=== PATIENT | female | born 1975 | race Caucasian/White ===

== ENCOUNTER 2016-10-15 14:39 | Inpatient (IN) | payer OTHER ==
[~2016-10-15] VITALS: Ht 167.6 cm; Wt 157.0 kg
[~2016-10-15 14:39] MED LIST: ACET-654 PO; ACET50TA PO; BACT800T5 PO; IBUP80TA PO; PRENTAB55 PO; RANI1TAB6 PO
[2016-10-15] MEDS ORDERED: PRENTAB9 PO (14:47)
[2016-10-15 14:58] VITALS: BP 133/88
[2016-10-15 16:38] VITALS: BP 132/67
[2016-10-15] MEDS ORDERED: LACTATED RINGER'S 1000 ML IV STA (17:09)
[2016-10-15] MEDS ORDERED: BICITRA 30ML SOLN UDC PO ONE (17:15)
[2016-10-15 17:44] LABS: MEAN CORPUSCULAR HEMOGLOBIN 26.4 pg (27.0-33.0); MEAN CORPUSCULAR HGB CONC 32.4 g/dl (32.0-36.5); MEAN CORPUSCULAR VOLUME 81.5 fl (80.0-96.0); WHITE BLOOD COUNT 10.9 K/mm3 (4.0-10.0)
--- NOTE | 2016-10-15 17:46 | HPEPDOC ---
Obstetrical History & Physical General Date of Admission Oct 15, 2016 at 14:39 History of Present Illness Nayely is a 41yo with SIUP at 40w1d by 2nd trimester ultrasound presenting today for scheduled iol for morbid obesity (BMI 55). On presentation , a TAUS was performed by this provider and head noted to be in the maternal LUQ = breech presentation. Patient last ate at 1330. PMhx significant for morbid obesity (BMI 55), GERD, depression-seeing . course complicated by AMA, previous with GBS sepsis, e-coli UTI treated in May with ESTEVAN this week showing +Klebsiella sensitive to anceph. Also, non-compliance. She came to her OB visits but never did growth scans as instructed, and did not perform urine ESTEVAN or GTT until last week. Information Provided By: Patient Care Care: Other (non-compliant) Dating Final EDC: Oct 14, 2016 Final EDC by: 2nd trimester (US) Antepartum Course Diagnos(e)s AMA, previous with GBS sepsis, e-coli UTI treated in May with ESTEVAN this week showing +Klebsiella sensitive to anceph. Also, non-compliance. She came to her OB visits but never did growth scans as instructed, and did not perform urine ESTEVAN or GTT until last week. Height (inches): 66 Pre- weight (lbs.): 347 Admission Weight (lbs.): 362 Past Medical History Past Obstetrical History #1: Past Obstetrical History: Multigravida Date of Delivery: Sep 28, 2001 Gestation: 39 Type of Delivery: Spontaneous Vaginal Del. Sex of : Male Complications: Yes ( GBS sepsis) Past Obstetrical History #2: Past Obstetrical History: Multigravida Date of Delivery: Sep 28, 2003 Gestation: 40 Type of Delivery: Spontaneous Vaginal Del. Sex of : Male Complications: No Past Obstetrical History #3: Past Obstetrical History: Multigravida Date of Delivery: Sep 28, 2007 Gestation: 40 Type of Delivery: Spontaneous Vaginal Del. Sex of Infant: Male Complications: No Past Obstetrical History #4: Past Obstetrical History: Multigravida Date of Delivery: Sep 28, 2014 Gestation: 41 Type of Delivery: Spontaneous Vaginal Del. Sex of Infant: Male Complications: No SHIPPING INSPECTOR History: No pertinent history Past Medical History Surgical History: Denies Family History Significant Family History: Diabetes Social History Marital Status: Family situation: Spouse/partner home Psychosocial History: Depression * Smoker: non-smoker Alcohol: denies Drugs: denies Allergies Coded Allergies: No Known Drug Allergy (Verified Allergy, Unknown, 12/30/12) Medications Scheduled Multivitamins/ ( 27-0.8 mg) 1 Tab Tab 1 TAB PO DAILY Physical Examination Physical Examination GENERAL: Alert and oriented times three. BREAST: . ABDOMEN: Morbidly obese, gravid and non-tender to touch. FETUS: Is breech by TAUS with head in maternal LUQ HEART RATE: Regular rate and rhythm. LUNGS: Clear to auscultation (CTA). EXTREMITIES: trace edema of BLE Laboratory Data Urine Culture: Other (Klebsiella) Pertinent Laboratoy Data Blood Type: O+ RBC Antibody Screen: Negative HIV: Negative Hepatitis B: Negative Hepatitis C: Unknown Rapid Plasma Reagin: Nonreactive Rubella: Immune Varicella: Immune Chlamydia/Gonorrhea: Negative Group B Streptococcus: Positive Anatomy Ultrasound Ultrasound Date: Jun 12, 2016 Placenta Location: Anterior Normal Anatomy: Yes Placenta Previa: No Steroid Therapy Steroid Therapy: No Vaginal Examination Dilation: 1cm Effacement: 0-30% Station: -4 Cervical Consistency: Medium Cervical Position: Posterior Presentation: Breech presentation Position: Breech (sacrum) Assessment Heart Rate (FHR): 140 Variability: Moderate Accelerations: Positive Decelerations: None Tocometer Contractions: No Assessment/Plan Assessment Nayely is a 41yo with SIUP at 40w1d by 2nd trimester ultrasound presenting today for scheduled iol for morbid obesity (BMI 55). On presentation , a TAUS was performed by this provider and head noted to be in the maternal LUQ = breech presentation. Patient last ate at 1330. PMhx significant for morbid obesity (BMI 55), GERD, depression-seeing . course complicated by AMA, previous with GBS sepsis, e-coli UTI treated in May with ESTEVAN this week showing +Klebsiella sensitive to anceph. Also, non-compliance. She came to her OB visits but never did growth scans as instructed, and did not perform urine ESTEVAN or GTT until last week. Plan Admit and orient Cordwood Cutter and consent for section with BTL (patient has endorsed desire for BTL throughout and confirms today) Diet: NPO Group B Streptococcus (GBS) positive based on previous infant affected by GBS sepsis Labs: CBC, type and screen, RPR Fingerstick glucose x1 now (patient endorses did GTT last week, but results not in chart) Lactated Ringers (LR): Bolus 1000 mL, then at 125 mL/hr.\ Anceph 2g pre-op will also cover klebsiella bacteruria LEYDI BUENO MD Oct 15, 2016 17:46
[2016-10-15 18:16] VITALS: BP 123/70
[2016-10-15] MEDS: LR 1,000 ML IV SCH (18:54)
[2016-10-15] MEDS ORDERED: ONDANSETRON 4MG/2ML VIAL (J2405) As Ordered ONE (19:47)
[2016-10-15] MEDS ORDERED: KETOROLAC 60 MG/2 ML VIAL (J1885) As Ordered ONE (19:47)
[2016-10-15] MEDS ORDERED: OXYTOCIN INJ 10 UNITS/ML VIAL (J2590) As Ordered ONE ×2 (19:47→22:36)
[2016-10-15] MEDS ORDERED: MORPHINE PRES-FREE INJ 10 MG/10 ML VIAL (J2274) As Ordered ONE (19:47)
[2016-10-15] MEDS ORDERED: NALBUPHINE HCL 10 MG/ML AMP (J2300) IV PRN (21:16)
[2016-10-15] MEDS ORDERED: METOCLOPRAMIDE INJ 10MG/2ML VIAL (J2765) IV PRN (21:16)
[2016-10-15] MEDS ORDERED: NALOXONE INJ 0.4 MG/1 ML VIAL (J2310) IV PRN ×2 (21:16)
[2016-10-15] MEDS ORDERED: ONDANSETRON 4MG/2ML VIAL (J2405) IV PRN (21:16)
[2016-10-15] MEDS ORDERED: PHENYLephrine HCL 500 MCG/5 ML (100MCG/ML) SYRINGE (J2370) As Ordered ONE ×3 (21:37→22:10)
[2016-10-15] MEDS ORDERED: ePHEDrine SULFATE 25 MG/5 ML(5MG/ML) SYRINGE As Ordered ONE (21:37)
[2016-10-15 22:27] LABS: CORD GAS ABE V -8.9; CORD GAS O2 SAT V 44.2 %; CORD GAS PCO2 V 47.7 mmHg; CORD GAS PH V 7.217 UNITS; CORD GAS PO2 V 23.1 mmHg; CORD GAS SBC V 16.3 MEQ/L; CORD GAS TCO2 V 20.4 MEQ/L
[2016-10-15 22:28] LABS: CORD GAS ABE A -7.3; CORD GAS O2 SAT A 20.5 %; CORD GAS PCO2 A 66.7 mmHg; CORD GAS PH A 7.155 UNITS; CORD GAS PO2 A 15.3 mmHg; CORD GAS SBC A 16.9 MEQ/L
[2016-10-15] MEDS ORDERED: diphenhydrAMINE INJ 50MG/ML VIAL (J1200) As Ordered ONE (23:08)
[2016-10-16] VITALS (7 sets, daily range): BP systolic 110–138; BP diastolic 57–73
[2016-10-16] MEDS ORDERED: LR 1,000 ML IV SCH (00:15)
[2016-10-16] MEDS ORDERED: fentaNYL 100 MCG/2 ML INJECTION (J3010) IV PRN (00:15)
[2016-10-16] MEDS ORDERED: MEPERIDINE INJ 25 MG/ML VIAL (J2175) IV PRN (00:15)
[2016-10-16] MEDS ORDERED: ONDANSETRON 4MG/2ML VIAL (J2405) IV PRN (00:15)
[2016-10-16] MEDS ORDERED: PERCOCET 5MG/325MG TAB PO PRN ×3 (00:15→02:00)
[2016-10-16] MEDS ORDERED: KETOROLAC 30 MG/ML VIAL (J1885) IV PRN (00:15)
[2016-10-16] MEDS ORDERED: METOCLOPRAMIDE INJ 10MG/2ML VIAL (J2765) IV PRN (00:15)
[2016-10-16] MEDS ORDERED: diphenhydrAMINE INJ 50MG/ML VIAL (J1200) IV PRN (00:15)
[2016-10-16] MEDS: LR 1,000 ML IV SCH ×4 (01:09→23:26)
[2016-10-16] MEDS ORDERED: MEASLES,MUMPS,RUBELLA VACCINE INJ (MMR-II) (90707) SC SCH (02:00)
[2016-10-16] MEDS ORDERED: RHOGAM 300 MCG (1500 IU) INJ (J2790) IM SCH (02:00)
[2016-10-16] MEDS ORDERED: MOM 30ML SUSPENSION UDC PO PRN (02:00)
[2016-10-16] MEDS ORDERED: KETOROLAC 30 MG/ML VIAL (J1885) IV SCH (04:00)
[2016-10-16] MEDS: KETOROLAC 30 MG/ML VIAL (J1885) IV SCH ×4 (04:59→23:10)
[2016-10-16] MEDS: PRENATAL VITAMIN TAB PO SCH (08:20)
[2016-10-16] MEDS: ENOXAPARIN 40 MG/0.4 ML SYRINGE (J1650) SC SCH (08:50)
[2016-10-16] MEDS ORDERED: ACET50TA PO (11:21)
[2016-10-16] MEDS ORDERED: COLA100C PO (11:21)
[2016-10-16] MEDS ORDERED: IBUP-1114 PO (11:21)
[2016-10-16] MEDS ORDERED: DIBU1OIN TOP (11:21)
--- NOTE | 2016-10-16 15:31 | IPNPDOC ---
Text Note Date of Service The patient was seen on 10/16/16 at 15:25. NOTE Post-Op Day 1 Nayely is a 41yo [id number] doing well on post-op day 1 s/p uncomplicated PLTCS with BTL indicated for breech presentation at 40w1d when presenting for IOL with satisfied parity. PMhx significant for morbid obesity with BMI 55. She is . Lochia normal, spontaneously voiding and ambulating without difficulty. Tolerating regular diet. Denies f/c/n/v/SOB/CP/ERNST/abdominal pain. Vitals wnl, afebrile Exam: General: WDWN, NAD, resting comfortably Cardiac: S1S2 present, no murmur Lungs: CTAB without wheeze/crackles Abdomen: soft, NTTP, fundus firm u-2cm (distorted by pannus), wound vac in place over pfannensteil incision and functioning well with no surrounding erythema, no drainage Extremities: no tenderness of calves bilaterally, SCDs on and functioning Assessment: Nayely is a 41yo [id number] doing well on post-op day 1 s/p uncomplicated PLTCS with BTL indicated for breech presentation at 40w1d when presenting for IOL with satisfied parity. PMhx significant for morbid obesity with BMI 55. Vitals wnl, benign exam. No e/o infection, hemodynamically stable. Plan: -routine post-op/post- care -Continue anceph 2g IV q8hr for 48hr post-op (plan for week-long course of augmentin after discharge to treat klebsiella bacteruria) -Lovenox 40mg SQ QD for prophylaxis while admitted, will discontinue on discharge -Regular diet -Hep-lock IV -Encourage ambulation and and use of IS -CBC in am -Wound vac in place, ok to shower with it and will go home with her. She knows to remove the entire wound vac after the battery dies in 5-7 days MD Sabine Nazario,Pedro, I+O ARIC, Pedro, I+O Laboratory Tests 10/15/16 17:20 Red Blood Count 4.18, Mean Corpuscular Volume 81.5, Mean Corpuscular Hemoglobin 26.4 L, Mean Corpuscular Hemoglobin Concent 32.4, Red Cell Distribution Width 16.0 H Vital Signs Date Time Temp Pulse Resp B/P Pulse Ox O2 Delivery O2 Flow Rate FiO2 10/16/16 10:00 97.2 93 20 131/66 99 10/16/16 04:15 Room Air I&O- Last 24 Hours up to 6 AM 10/16/16 05:59 Intake Total 1000 ml Output Total 725 ml Balance 275 ml LEYDI BUENO MD Oct 16, 2016 15:31
[2016-10-17 05:46] VITALS: BP 142/74
[2016-10-17] MEDS ORDERED: IBUPROFEN 800 MG TAB PO SCH ×2 (06:00→07:00)
[2016-10-17 07:22] LABS: MEAN CORPUSCULAR HEMOGLOBIN 27.6 pg (27.0-33.0); MEAN CORPUSCULAR HGB CONC 33.7 g/dl (32.0-36.5); MEAN CORPUSCULAR VOLUME 81.8 fl (80.0-96.0); RED CELL DISTRIBUTION WIDTH 15.4 % (11.5-14.5); WHITE BLOOD COUNT 10.2 K/mm3 (4.0-10.0)
[2016-10-17] MEDS: PRENATAL VITAMIN TAB PO SCH (07:53)
--- NOTE | 2016-10-17 08:34 | RO ---
DATE OF PROCEDURE: 10/15/2016 PREPROCEDURE DIAGNOSES: 1. Term intrauterine at 40 weeks 1 day with breech presentation. 2. Morbid obesity, body mass index (BMI) of 55. 3. Advanced maternal age. 4. Satisfied parity. POSTPROCEDURE DIAGNOSES: 1. Term intrauterine at 40 weeks 1 day with breech presentation. 2. Morbid obesity, body mass index (BMI) of 55. 3. Advanced maternal age. 4. Satisfied parity. PROCEDURE: Primary low transverse section with bilateral tubal ligation. SURGEON: Dr. Rachel Ferrera. TECHNICIAN: Dr. Ismael Correa. ANESTHESIA: Spinal ESTIMATED BLOOD LOSS: 500 mL. INFECTION CLASSIFICATION: 2. IV FLUIDS: 2550 mL of lactated ringers. URINE OUTPUT: 50 mL of yellow clear urine. MATERIAL FORWARDED TO LABORATORY FOR EXAMINATION: Cord gases, pH venous 7.217, base excess -8.9, pH arterial 7.155, base excess -7.3. INDICATION FOR OPERATION: Nayely is a 41-year-old, G5 now P5-0-0-5 who presented for induction of labor at 40 weeks 1 day with the indication of advanced maternal age and morbid obesity with a body mass index (BMI) of 55. On presentation, transabdominal ultrasound was performed per protocol and the fetus was seen to be in breech presentation with the head in the maternal left upper quadrant of the abdomen. At that time, she was consented for a primary section as mode of delivery instead of having an induction of labor given presentation. She endorsed desire for tubal ligation which was previously documented in her chart. DESCRIPTION OF FINDINGS: Clear amniotic fluid noted on entry to the uterus. Female infant in footling breech presentation. 8 and 9. Weight 3388 grams or 7 pounds 7 ounces. Normal appearing uterus and fallopian tubes. DESCRIPTION OF OPERATION: After obtaining informed consent, Nayely was taken to the operating room. Izaguirre catheter and bilateral sequential compression devices were placed. She received 2 grams of IV Ancef prophylactically. She was prepped and draped in normal sterile fashion in dorsal supine position with a left lateral tilt after taping up her pannus. Time out was performed to confirm patient name, date of , procedure and indication. Surgical team, nursing staff and anesthesia were all in agreement. Spinal anesthesia was found to be adequate using an Allis clamp. Pfannenstiel skin incision was made with a scalpel and carried through to the underlying layer of the fascia with the Bovie. The fascia was incised in the midline and the incision was extended laterally with Rios scissors. The superior and inferior aspect of the fascial incision were grasped with Tobias clamps, elevated and the underlying rectus muscles were dissected off bluntly and sharply. The peritoneum was entered digitally and the rectus muscles were in the midline. The peritoneal incision was extended superiorly and inferiorly with good visualization of the bladder. Bladder blade was inserted and the vesicouterine peritoneum was identified, grasped with pickups and entered sharply with Metzenbaum scissors. The incision was extended laterally and a bladder flap created digitally. Bladder blade was reinserted and the lower uterine segment was scored in a transverse fashion with a scalpel. The uterus was entered bluntly and the incision was extended with traction with aid of bandage scissors on the right lateral aspect of the hysterotomy. The bladder blade was removed and clear fluid was noted on entry to the uterus. Placing one hand into the uterus, the presenting part was the right foot of the which was elevated to the level of the incision and the leg was delivered. At that point, the infant was turned and the left leg was delivered using Pinard's maneuver. The left followed by right arm were delivered using Lovset maneuver and the head was delivered atraumatically in OA position using fundal pressure. Nose and mouth were suctioned with bulb suction. Cord was clamped times two and cut. The infant was handed off to the awaiting nursing team and cord gases were obtained with values as noted above. Placenta was removed with traction on the umbilical cord and massage of the uterus. The uterus was left in situ and cleared of all clot and debris. The uterine incision was repaired with #0 Vicryl suture in a running locking fashion and a second layer of the same suture was used to close the hysterotomy incision in an imbricating fashion. Two extra [id number]'s were needed with the #0Vicryl to gain complete hemostasis. Uterine incision was inspected and hemostasis noted. At that point, we turned our attention to the fallopian tubes which were brought up to near the level of the skin incision using clamps and Filshie clips were placed bilaterally noting complete obliteration of the tube on both sides approximately 4 cm from the cornua on each side. We reinspected the uterine incision and noted it again to be hemostatic. The fascia was then reapproximated with #0 Vicryl suture in a running fashion. Dieudonne's fascia was reapproximated using #3-0 Vicryl suture in a running fashion in two layers after copious irrigation of normal saline. Skin edges were reapproximated using three inverted interrupted stitches using #3-0 Vicryl suture followed by a running subcuticular stitch using #4-0 Monocryl suture. The incision was cleaned using a wet lap, dried with a dry lap. At that point, we took down the drapes while protecting the incision and then removed the sterile towel from the incision and placed a Prevena wound vacuum under the information assurance analyst specifications and noted it to have a good seal and to be functioning well. This will hopefully keep the patient from getting a wound infection along with continuing her Ancef every 8 hours over the course of her admission. She had noted Klebsiella bacteria in her urine only the day of her admission which she performed as a test of cure for a previous E. Coli urinary tract infection (UTI) that was treated in earlier . Given the presence of the Klebsiella in her urine, we will continue her Ancef during admission and then she will have a 1 week course of Augmentin after discharge. She will also receive Lovenox 40 mg subcutaneously daily during her hospital course starting approximately 12 hours after surgery if her bleeding is minimal. The vagina was cleared of all blood clot without active bleeding noted. All counts were correct times two. The procedure was without complication and she tolerated the procedure well. She was taken to the recovery room in labor and delivery in stable condition. JERRY
[2016-10-17] MEDS: ENOXAPARIN 40 MG/0.4 ML SYRINGE (J1650) SC SCH (08:37)
--- NOTE | 2016-10-17 12:58 | IPNPDOC ---
Text Note Date of Service The patient was seen on 10/17/16 at 12:53. NOTE Post-Op Day 2 Nayely is a 41yo [id number] doing well on post-op day 2 s/p uncomplicated PLTCS with BTL indicated for breech presentation at 40w1d when presenting for IOL with satisfied parity. PMhx significant for morbid obesity with BMI 55. She is . Lochia normal, spontaneously voiding and ambulating without difficulty. Tolerating regular diet. Denies f/c/n/v/SOB/CP/ERNST/abdominal pain. Vitals wnl, afebrile Exam: General: WDWN, NAD, sitting in bed comfortably Cardiac: S1S2 present, no murmur Lungs: CTAB without wheeze/crackles Abdomen: soft, NTTP, fundus firm u-2cm (distorted by pannus), wound vac in place over pfannensteil incision and functioning well with no surrounding erythema, no drainage. There is moisture present under the pannus, likely from patient's shower this morning Extremities: no tenderness of calves bilaterally, SCDs on and functioning Labs: 10/15: WBC 10.9, H/H 11/34 10/17: WBC 10.2, H/H 8.4/ Assessment: Nayely is a 41yo [id number] doing well on post-op day 2 s/p uncomplicated PLTCS with BTL indicated for breech presentation at 40w1d when presenting for IOL with satisfied parity. PMhx significant for morbid obesity with BMI 55. Vitals wnl, benign exam. No e/o infection, hemodynamically stable. Has received anceph 2g q8hr IV since operation for klebsiella + urine and lovenox 40mg SQ QD for DVT prophylaxis. Plan: -discharge to home today -Wound vac in place, ok to shower with it and will go home with her. She knows to remove the entire wound vac after the battery dies in 5-7 days -Given home meds from clinic flex stock: motrin, percocet, lanolin, miralax and instructed on their use -She knows to go to [facility] on the way home to pick up operator augmentin 500mg for 10 day course BID -Again instructed to keep under the pannus dry. She has the extra seal stickers to place for the wound vac if the seal leaks after she goes home Dr. Leydi Ferrera MD Swengel Pedro [place], I+O VSPedro, I+O Laboratory Tests 10/17/16 07:09 Red Blood Count 3.05 L, Mean Corpuscular Volume 81.8, Mean Corpuscular Hemoglobin 27.6, Mean Corpuscular Hemoglobin Concent 33.7, Red Cell Distribution Width 15.4 H Vital Signs Date Time Temp Pulse Resp B/P Pulse Ox O2 Delivery O2 Flow Rate FiO2 10/17/16 05:46 97.6 87 18 142/74 10/16/16 22:00 100 Room Air I&O- Last 24 Hours up to 6 AM 10/17/16 06:00 Intake Total 1920 ml Balance 1920 ml LEYDI FERRERA MD Oct 17, 2016 12:58
--- NOTE | 2016-10-17 13:04 | DS.PDOC ---
Discharge Summary General Date of Admission Oct 15, 2016 at 14:39 Date of Discharge Oct 17, 2016 Attending Physician: LEYDI BUENO MD Discharge Summary PROCEDURES PERFORMED DURING STAY: Primary low transverse section with bilateral tubal ligation COMPLICATIONS/CHIEF COMPLAINT: breech presentation at term when presenting for IOL for advanced maternal age/obesity ADMISSION DIAGNOSES: 1. Breech presentation when presenting for induction of labor for advanced maternal age/morbid obesity DISCHARGE DIAGNOSES: 1. Breech presentation when presenting for induction of labor for advanced maternal age/morbid obesity, delivered HISTORY OF PRESENT ILLNESS/HOSPITAL COURSE: Nayely is a 41yo [id number] doing well on post-operative day 2 status post uncomplicated primary low transverse section with bilateral tubal ligation indicated for breech presentation at 40w1d when presenting for induction of labor with satisfied parity. Past medical history significant for morbid obesity with BMI 55. Received anceph 2g q8hr IV after operation for klebsiella + urine and lovenox 40mg SQ QD for DVT prophylaxis. Plan to continue on 10 day oral course of augmentin to treat bacteruria. Post-operative course has been benign. DISCHARGE MEDICATIONS: motrin, percocet, lanolin, miralax- instructed on their use ALLERGIES: Please see below. PHYSICAL EXAMINATION ON DISCHARGE: Vitals- see below General: WDWN, NAD, sitting in bed comfortably Cardiac: S1S2 present, no murmur Lungs: CTAB without wheeze/crackles Abdomen: soft, NTTP, fundus firm u-2cm (distorted by pannus), wound vac in place over pfannensteil incision and functioning well with no surrounding erythema, no drainage. There is moisture present under the pannus, likely from patient's shower this morning Extremities: no tenderness of calves bilaterally, SCDs on and functioning LABORATORY DATA: Please see below. 10/15: WBC 10.9, H/H 1134 10/17: WBC 10.2, H/H 8.01/20 IMAGING: none VTE Prophylaxis ordered?: received Lovenox 40mg SQ QD post-operatively as well as SCDs DISCHARGE CONDITION: stable DISPOSITION: home ACTIVITY: ad giorgi DIET: regular ITEMS TO FOLLOWUP ON OUTPATIENT: 1. Incision check in 1 week DISCHARGE PLAN AND INSTRUCTIONS: -discharge to home today -Wound vac in place, ok to shower with it and will go home with her. She knows to remove the entire wound vac after the battery dies in 5-7 days -Given home meds from clinic flex stock: motrin, percocet, lanolin, miralax and instructed on their use -She knows to go to [facility] on the way home to potato picker augmentin 500mg for 10 day course BID -Again instructed to keep under the pannus dry. She has the extra seal stickers to place for the wound vac if the seal leaks after she goes home TIME SPENT ON DISCHARGE: Greater than 30 minutes. Vital Signs/I&Os Vital Signs Date Time Temp Pulse Resp B/P Pulse Ox O2 Delivery O2 Flow Rate FiO2 10/17/16 05:46 97.6 87 18 142/74 10/16/16 22:00 100 Room Air I&O- Last 24 Hours up to 6 AM 10/17/16 06:00 Intake Total 1920 ml Balance 1920 ml Laboratory Data CBC/BMP Laboratory Tests 10/17/16 07:09 Red Blood Count 3.05 L, Mean Corpuscular Volume 81.8, Mean Corpuscular Hemoglobin 27.6, Mean Corpuscular Hemoglobin Concent 33.7, Red Cell Distribution Width 15.4 H Medications Scheduled Multivitamins/ ( 27-0.8 mg) 1 Tab Tab 1 TAB PO DAILY Scheduled PRN Acetaminophen (Mapap) 500 Mg Tab 1,000 MG PO Q6HP PRN PRN ABDOMINAL PAIN Dibucaine (Dibucaine) 1 % Oin 0 TOP Q4HP PRN PRN perineum Ibuprofen (Ibuprofen) 400 Mg Tab 800 MG PO Q8HP PRN PRN ABDOMINAL PAIN Miscellaneous Medications Docusate Sodium (Colace) 100 Mg Cap 100 MG PO Allergies Coded Allergies: No Known Drug Allergy (Verified Allergy, Unknown, 12/30/12) LEYDI BUENO MD Oct 17, 2016 13:04
[2016-10-17] MEDS ORDERED: OXYC1TAB23 PO (13:11)
[2016-10-17] MEDS ORDERED: IBUP-1114 PO (13:11)
== END 2016-10-17 16:00 | disposition home or self-care (01) | DRG 765 ==
LOC: M LDI 14:39 → M OBS 10-16 02:06
PROVIDERS: ADMIT Obstetrics & Gynecology; ATTEND Obstetrics & Gynecology
PROC: 10D00Z1 Extraction of Products of Conception, Low, Open Approach (ICD-10-PCS; principal; 2016-10-17)
PROC: 0UL70DZ Occlusion of Bilateral Fallopian Tubes with Intraluminal Device, Open Approach (ICD-10-PCS; 2016-10-17)
DX: O99.214 Obesity complicating childbirth (principal); Z68.43 Body mass index [BMI] 50.0-59.9, adult; Z3A.40 40 weeks gestation of pregnancy; E66.01 Morbid (severe) obesity due to excess calories; O99.344 Other mental disorders complicating childbirth; F32.9 Major depressive disorder, single episode, unspecified; Z91.19 Patient's noncompliance with other medical treatment and regimen; O32.8XX0 Maternal care for other malpresentation of fetus, not applicable or unspecified; O99.824 Streptococcus B carrier state complicating childbirth; Z30.2 Encounter for sterilization; Z37.0 Single live birth

== ENCOUNTER → 2022-05-21 | Outpatient (CLI) | payer OTHER ==
[~2022-05-21] MED LIST changes: -ACET-654 PO; +ACET1TAB55 PO; -ACET50TA PO; +COLA100C5 PO; +DIBU1OIN TOP; +IBUP-1114 PO; +MAPA500T2 PO; +OXYC1TAB23 PO; +PRENTAB9 PO; +RANI-397 PO; -RANI1TAB6 PO
== END ==
LOC: M PLAIMG 09:57
PROVIDERS: ATTEND Family Medicine
DX: M25.552 Pain in left hip (principal); M25.752 Osteophyte, left hip

== ENCOUNTER → 2022-09-16 | Outpatient (CLI) | payer OTHER ==
[2022-09-16 13:26] LABS: HEMOGLOBIN A1c 5.5 % (4.0-6.0)
== END ==
LOC: M PLALAB 08:06
PROVIDERS: ATTEND Surgery
DX: Z86.39 Personal history of other endocrine, nutritional and metabolic disease (principal)

== ENCOUNTER → 2023-05-13 | Outpatient (CLI) | payer OTHER ==
[2023-05-13 17:27] LABS: BASO % 0.3 % (0.0-1.0); EOS # 0.2 10^3/uL (0.0-0.5); EOS % 1.5 % (0.0-3.0); HEMATOCRIT 41.3 % (36.0-47.0); HEMATOCRIT 41.4 % (36.0-47.0); HEMOGLOBIN 12.9 g/dl (12.0-15.5); LYMPH # 2.9 10^3/uL (1.5-5.0); MEAN CORPUSCULAR HEMOGLOBIN 26.4 pg (27.0-33.0); MEAN CORPUSCULAR HGB CONC 31.2 g/dl (32.0-36.5); MEAN CORPUSCULAR VOLUME 84.5 fl (80.0-96.0); MONO # 0.9 10^3/uL (0.0-0.8); MONO % 8.4 % (2.0-8.0); NEUTROPHILS # 6.7 10^3/uL (1.5-8.5); NEUTROPHILS % 62.4 % (36.0-66.0); PLATELET COUNT, AUTOMATED 414 10^3/uL (150-450); RED BLOOD COUNT 4.89 10^6/uL (4.00-5.40); WHITE BLOOD COUNT 10.8 10^3/uL (4.0-10.0)
[2023-05-13 17:50] LABS: IRON (FE) 43 UG/DL (50-170); PERCENT SATURATION 17.3 % (13.2-45.0); TOTAL IRON BINDING CAPACITY 248 UG/DL (250-425)
[2023-05-13 17:51] LABS: ALBUMIN 3.5 G/DL (3.2-5.2); ALKALINE PHOSPHATASE 78 U/L (46-116); ALT/SGPT 44 U/L (7.0-40); AST/SGOT 31 U/L (<34); BILIRUBIN,TOTAL 0.6 MG/DL (0.3-1.2); BLOOD UREA NITROGEN 9 MG/DL (9-23); CALCIUM LEVEL 9.3 MG/DL (8.5-10.1); CARBON DIOXIDE LEVEL 29 MMOL/L (20-31); CHLORIDE LEVEL 102 MMOL/L (98-107); CREATININE FOR GFR 0.83 MG/DL (0.55-1.30); GLOMERULAR FILTRATION RATE > 60.0 (>58); GLUCOSE, FASTING 93 MG/DL (60-100); PHOSPHORUS LEVEL 2.7 MG/DL (2.5-4.9); POTASSIUM SERUM 3.7 MMOL/L (3.5-5.1); SODIUM LEVEL 142 MMOL/L (136-145); TOTAL PROTEIN 7.1 G/DL (5.7-8.2)
[2023-05-13 17:52] LABS: FERRITIN 109.5 NG/ML (7.3-270.7); TOTAL 25(OH) VITAMIN D 13.6 NG/ML (20.0-100.0); VITAMIN B12 LEVEL 925 PG/ML (211-911)
[2023-05-13 17:57] LABS: HEMOGLOBIN A1c 6.2 % (4.0-6.0)
== END ==
LOC: M PLALAB 15:24
PROVIDERS: ATTEND Surgery
DX: K91.2 Postsurgical malabsorption, not elsewhere classified (principal); Z98.84 Bariatric surgery status; E55.9 Vitamin D deficiency, unspecified; Z86.39 Personal history of other endocrine, nutritional and metabolic disease

== ENCOUNTER → 2023-11-18 | Outpatient (CLI) | payer OTHER ==
[2023-11-18 13:53] LABS: BASO % 0.3 % (0.0-1.0); EOS # 0.1 10^3/uL (0.0-0.5); EOS % 1.2 % (0.0-3.0); HEMATOCRIT 44.4 % (36.0-47.0); HEMOGLOBIN 13.7 g/dl (12.0-15.5); LYMPH # 3.3 10^3/uL (1.5-5.0); LYMPH % 29.3 % (24.0-44.0); MEAN CORPUSCULAR HEMOGLOBIN 26.4 pg (27.0-33.0); MEAN CORPUSCULAR HGB CONC 30.9 g/dl (32.0-36.5); MEAN CORPUSCULAR VOLUME 85.7 fl (80.0-96.0); MONO # 0.5 10^3/uL (0.0-0.8); MONO % 4.5 % (2.0-8.0); NEUTROPHILS # 7.2 10^3/uL (1.5-8.5); NEUTROPHILS % 64.3 % (36.0-66.0); PLATELET COUNT, AUTOMATED 359 10^3/uL (150-450); RED BLOOD COUNT 5.18 10^6/uL (4.00-5.40); WHITE BLOOD COUNT 11.2 10^3/uL (4.0-10.0)
[2023-11-18 14:30] LABS: ALBUMIN 3.5 G/DL (3.2-5.2); ALKALINE PHOSPHATASE 95 U/L (46-116); ALT/SGPT 16 U/L (7.0-40); AST/SGOT 13 U/L (<34); BILIRUBIN,TOTAL 0.5 MG/DL (0.3-1.2); BLOOD UREA NITROGEN 13 MG/DL (9-23); CALCIUM LEVEL 9.4 MG/DL (8.5-10.1); CARBON DIOXIDE LEVEL 30 MMOL/L (20-31); CHLORIDE LEVEL 106 MMOL/L (98-107); CREATININE FOR GFR 0.82 MG/DL (0.55-1.30); GLOMERULAR FILTRATION RATE > 60.0 (>58); GLUCOSE, FASTING 89 MG/DL (60-100); IRON (FE) 38 UG/DL (50-170); MAGNESIUM LEVEL 2.1 MG/DL (1.8-2.4); PERCENT SATURATION 13.3 % (13.2-45.0); PHOSPHORUS LEVEL 3.7 MG/DL (2.5-4.9); POTASSIUM SERUM 4.4 MMOL/L (3.5-5.1); SODIUM LEVEL 140 MMOL/L (136-145); TOTAL IRON BINDING CAPACITY 286 UG/DL (250-425); TOTAL PROTEIN 7.4 G/DL (5.7-8.2)
[2023-11-18 14:32] LABS: FERRITIN 64.4 NG/ML (7.3-270.7); TOTAL 25(OH) VITAMIN D 26.4 NG/ML (20.0-100.0); VITAMIN B12 LEVEL 444 PG/ML (211-911)
[2023-11-18 19:00] LABS: HEMATOCRIT 44.4 % (36.0-47.0)
== END ==
LOC: M PLALAB 11:41
PROVIDERS: ATTEND Physician Assistant Surgical
DX: Z86.39 Personal history of other endocrine, nutritional and metabolic disease (principal); E55.9 Vitamin D deficiency, unspecified; Z98.84 Bariatric surgery status; K91.2 Postsurgical malabsorption, not elsewhere classified

== ENCOUNTER → 2024-06-20 | Outpatient (CLI) | payer OTHER ==
[2024-06-20 13:53] LABS: HEMATOCRIT 42.4 % (36.0-47.0); HEMOGLOBIN 13.5 g/dl (12.0-15.5); MEAN CORPUSCULAR HEMOGLOBIN 27.5 pg (27.0-33.0); MEAN CORPUSCULAR HGB CONC 31.8 g/dl (32.0-36.5); MEAN CORPUSCULAR VOLUME 86.4 fl (80.0-96.0); PLATELET COUNT, AUTOMATED 332 10^3/uL (150-450); RED BLOOD COUNT 4.91 10^6/uL (4.00-5.40); WHITE BLOOD COUNT 8.5 10^3/uL (4.0-10.0)
[2024-06-20 13:55] LABS: HEMATOCRIT 42.4 % (36.0-47.0)
[2024-06-20 14:02] LABS: IRON (FE) 49 UG/DL (50-170); PERCENT SATURATION 15.5 % (13.2-45.0); TOTAL IRON BINDING CAPACITY 317 UG/DL (250-425)
[2024-06-20 14:12] LABS: ALBUMIN 3.7 G/DL (3.2-5.2); ALKALINE PHOSPHATASE 103 U/L (46-116); ALT/SGPT 12 U/L (7.0-40); AST/SGOT 9 U/L (<34); BILIRUBIN,TOTAL 0.5 MG/DL (0.3-1.2); BLOOD UREA NITROGEN 14 MG/DL (9-23); CALCIUM LEVEL 9.5 MG/DL (8.5-10.1); CARBON DIOXIDE LEVEL 28 MMOL/L (20-31); CHLORIDE LEVEL 105 MMOL/L (98-107); CREATININE FOR GFR 0.75 MG/DL (0.55-1.30); FERRITIN 51.5 NG/ML (7.3-270.7); GLOMERULAR FILTRATION RATE > 60.0 (>58); GLUCOSE, FASTING 92 MG/DL (60-100); PHOSPHORUS LEVEL 3.6 MG/DL (2.5-4.9); POTASSIUM SERUM 4.5 MMOL/L (3.5-5.1); SODIUM LEVEL 139 MMOL/L (136-145); TOTAL 25(OH) VITAMIN D 20.8 NG/ML (20.0-100.0); TOTAL PROTEIN 7.6 G/DL (5.7-8.2); VITAMIN B12 LEVEL 456 PG/ML (211-911)
[2024-06-20 14:39] LABS: HEMOGLOBIN A1c 4.8 % (4.0-6.0)
== END ==
LOC: M PLALAB 10:23
PROVIDERS: ATTEND Physician Assistant Surgical
DX: Z98.84 Bariatric surgery status (principal)